=== PATIENT | female | born 1955 | race African-American/Black ===

== ENCOUNTER → 2020-08-20 | Outpatient (CLI) | payer BC | LOC: DX 10:12 | PROVIDERS: ATTEND Otolaryngology Otolaryngology/Facial Plastic Surgery | DX: R13.10 Dysphagia, unspecified (principal); R93.3 Abnormal findings on diagnostic imaging of other parts of digestive tract; Y84.4 Aspiration of fluid as the cause of abnormal reaction of the patient, or of later complication, without mention of misadventure at the time of the procedure; D10.6 Benign neoplasm of nasopharynx | CPT/HCPCS: 74230; 92526; 92611; U0002 ==